=== PATIENT | female | born 1960 | race African-American/Black ===

== ENCOUNTER 2020-07-26 08:12 | Emergency (ER) | payer MEDICARE ==
[~2020-07-26] VITALS: Ht 165.1 cm; Wt 78.0 kg
[~2020-07-26 08:12] MED LIST: ALBUTEROL SUL0.083 % IN; ASPIRIN LOW DOS81 M2 PO; ASPIRIN81 M1 OR; AUGMENTIN500TAB PO; AUGMENTIN875TAB PO; BABY ASPIRIN81 MG OR; CIPRO500 MG OR; CIPROFLOXACN500 MG PO; COREG12.5 MG PO; COREG6.25 MG PO; DOXYCYC MONO100 MG OR; DOXYCYCL HYC100 MG PO; ELIQUIS2.5 MG; ELIQUIS2.5 MG PO; ENALAPRIL5 MG PO; FUROSEMIDE40 MG PO; HYDROCHLOROTH12.5 MG PO; IRON325 MG PO; KEFLEX500 MG PO; KLOR-CON 1010 ME1 PO; LISINOPRIL10 MG PO; LISINOPRIL20 MG PO; LORTAB 1010 MG PO; LOVASTATIN10 MG OR; LOVASTATIN10 MG PO; METOPROL TAR25 MG PO; NORVASC10 MG PO; PERCOCET 5/325M1 TAB PO; SIMVASTATIN5 MG PO; SPIRONOLACTONE25 MG PO; ZITHROMAX250 MG PO
[2020-07-26 09:27] LABS: ALBUMIN 4.2 g/dL (3.2-5.0); ALKALINE PHOSPHATASE 77 u/l (38-126); BILIRUBIN, TOTAL 0.5 mg/dL (0.0-1.4); BUN 9 mg/dL (7-17); BUN/CREATININE RATIO 14 (12-20 (CALC)); CARBON DIOXIDE 23 mmol/l (22-30); CHLORIDE 102 mmol/l (95-108); CREATININE 0.6 mg/dL (0.5-1.0); GFR > 60 ML/MIN (>=60 (CALC)); GFR FOR AFR.AMER. > 60 ML/MIN (>=60 (CALC)); HEMATOCRIT 36.9 % (37.0-47.0); HEMOGLOBIN 12.1 g/dl (12.0-16.0); MEAN CELL VOLUME 95.3 fL CALC (80.0-100.0); MEAN CORPUSCULAR HGB 31.3 pG CALC (26.0-32.0); MEAN CORPUSCULAR HGB CONC 32.8 g/dL CAL (32.0-36.0); NEUT# 1.72 thou/uL (2.00-7.15); POTASSIUM 3.9 mmol/l (3.5-5.1); RED BLOOD COUNT 3.87 mill/uL (4.20-5.60); RED CELL DISTRI WIDTH 14.5 % (11.5-15.5); TOTAL PROTEIN 7.3 g/dL (6.3-8.2)
[2020-07-26 09:35] LABS: ANION GAP 14 (6-22 (CALC)); SGOT/AST 37 u/l (14-36); SODIUM 135 mmol/l (137-146)
[2020-07-26 09:37] LABS: MYOGLOBIN 50 ng/mL (0 - 62)
[2020-07-26 09:40] LABS: URINE BILIRUBIN - DIPSTICK NEGATIVE (NEGATIVE); URINE BLOOD DIPSTICK SMALL (NEGATIVE); URINE COLOR YELLOW; URINE GLUCOSE - DIPSTICK NEGATIVE (NEGATIVE); URINE KETONE NEGATIVE (NEGATIVE); URINE LEUK ESTERASE NEGATIVE (NEGATIVE); URINE NITRITE - DIPSTICK NEGATIVE (Negative); URINE PROTEIN - DIPSTICK 30 mg/dL (NEG-TRACE); URINE SPECIFIC GRAVITY 1.025; URINE UROBILINOGEN - DIPSTICK 0.2 E.U./dL (0.2)
[2020-07-26 09:54] LABS: URINE BACTERIA FEW hpf; URINE RBC 0-2 RBC/hpf (0-5); URINE SQUAMOUS EPITHELIAL CELL FEW EPI/hpf (0-FEW); URINE WBC 0-2 WBC/hpf (0-5)
[2020-07-26 10:21] VITALS: BP 135/63
== END 2020-07-26 10:23 | disposition home or self-care (01) ==
LOC: ED 08:12
PROVIDERS: Emergency Medicine
DX: I95.9 Hypotension, unspecified (principal); I10 Essential (primary) hypertension; Z95.0 Presence of cardiac pacemaker

== ENCOUNTER 2021-06-11 18:43 | Emergency (ER) | payer MEDICARE ==
[~2021-06-11] VITALS: Ht 165.1 cm; Wt 83.0 kg
[2021-06-11] MEDS ORDERED: TOPROL XL100 MG PO (19:25)
[2021-06-11] MEDS ORDERED: XARELTO10 MG PO (19:26)
[2021-06-11] MEDS ORDERED: OMEPRAZOLE20 M1 PO (19:27)
[2021-06-11] MEDS ORDERED: CANE (20:43)
[2021-06-11 20:52] VITALS: BP 129/65
== END 2021-06-11 21:10 | disposition home or self-care (01) ==
LOC: ED 18:43
DX: M25.462 Effusion, left knee (principal); I10 Essential (primary) hypertension; Z95.0 Presence of cardiac pacemaker

== ENCOUNTER 2024-07-23 08:39 | Emergency (ER) | payer MEDICARE ==
[~2024-07-23] VITALS: Ht 165.1 cm; Wt 76.0 kg
[~2024-07-23 08:39] MED LIST changes: +CANE; +OMEPRAZOLE20 M1 PO; +TOPROL XL100 MG PO; +XARELTO10 MG PO
[2024-07-23 08:48] VITALS: BP 136/81
[2024-07-23] MEDS ORDERED: ONDANSETRON 4 MG/TAB ODT PO ONE (09:10)
[2024-07-23 09:15] VITALS: BP 117/82
[2024-07-23 09:30] VITALS: BP 129/75
[2024-07-23 09:45] VITALS: BP 111/74
[2024-07-23] MEDS ORDERED: PAXLOVID PO (09:50)
[2024-07-23 09:54] VITALS: BP 111/74
== END 2024-07-23 10:00 | disposition home or self-care (01) ==
LOC: ED 08:39
DX: U07.1 COVID-19 (principal); R50.9 Fever, unspecified; R52 Pain, unspecified; I10 Essential (primary) hypertension; Z95.0 Presence of cardiac pacemaker